=== PATIENT | female | born 1965 ===

== ENCOUNTER 2018-08-06 07:30 | Inpatient (IN) | payer OTHER ==
[~2018-08-06] VITALS: Ht 157.5 cm; Wt 73.9 kg
[2018-08-20] VITALS (15 sets, daily range): BP systolic 100–131; BP diastolic 57–84
[2018-08-20] MEDS ORDERED: TYLENOL EXTRA500 MG ORAL (06:10)
[2018-08-20] MEDS ORDERED: Ropivacaine 5mg/ml Vial 30ml INJ ONE (06:42)
[2018-08-20] MEDS ORDERED: Gelfoam Size TOPIC ONE (06:42)
[2018-08-20] MEDS ORDERED: Thrombin 5000 units TOPIC ONE (06:42)
[2018-08-20] MEDS ORDERED: Vancomycin 1gm vial IVPB ONE (06:42)
[2018-08-20] MEDS ORDERED: Bacitracin 50000 Units Vial ONE (06:43)
[2018-08-20] MEDS ORDERED: fentaNYL 100 mcg/2 mL IV ONE (06:44)
[2018-08-20] MEDS ORDERED: Ketorolac 30mg Inj ONE (06:44)
[2018-08-20] MEDS ORDERED: Midazolam 2mg/2ml Inj ONE (06:44)
[2018-08-20] MEDS ORDERED: Lidocaine 1% MPF 10mg/ml 5ml ONE (06:44)
[2018-08-20] MEDS ORDERED: Zemuron 50mg/5ml Inj IV ONE (06:57)
[2018-08-20] MEDS ORDERED: Succinylcholine 20mg/ml 10ml vial ONE (06:57)
[2018-08-20] MEDS ORDERED: Propofol 1,000mg/ 100ml btl IV ONE (07:00)
[2018-08-20] MEDS ORDERED: ceFAZolin sod 2 GM in NS 55 ML IVPB ONE (07:00)
--- NOTE | 2018-08-20 07:14 | Pre-Procedure Note/Attestation ---
Pre-Procedure Note/Attestation Complete Prior to Procedure Planned Procedure: left Procedure Narrative: Left sided L5S1 hemilaminotomy foraminotomy microdiscectomy Indications for Procedure Pre-Operative Diagnosis: L5S1 Herniation Attestation I attest that I discussed the nature of the procedure; its benefits; risks and complications; and alternatives (and the risks and benefits of such alternatives ), prior to the procedure, with the patient (or the patient's legal renewals representative). I attest that, if there was a reasonable possibility of needing a blood transfusion, the patient (or the patient's legal renewals representative) was given the [facility] standardized written summary, pursuant to the Harrison Jimbo Blood Safety Act ([place] Health and Safety Code # 1645, as amended). I attest that I re-evaluated the patient just prior to the surgery and that there has been no change in the patient's H&P, except as documented below: Pedro Griffith MD Aug 20, 2018 07:14
[2018-08-20] MEDS ORDERED: Naloxone 0.4mg/ml Inj IVP PRN (07:15)
[2018-08-20] MEDS ORDERED: Chloraseptic Spray 20mL Bottle ORAL PRN (07:15)
[2018-08-20] MEDS ORDERED: Milk of Magnesia 30ml Ud ORAL PRN (07:15)
[2018-08-20] MEDS ORDERED: Morphine Sulfate 2mg/ml Inj(IV/IM USE ONLY) IV PRN (07:15)
[2018-08-20] MEDS ORDERED: HYDROmorphone 1mg/ml Carpuject IVP PRN (07:15)
[2018-08-20] MEDS ORDERED: Morphine Sulfate 4mg/ml Inj (IV USE ONLY) IV PRN ×2 (07:15)
[2018-08-20] MEDS ORDERED: Metoclopramide 10mg/2ml Inj IVP PRN ×2 (07:15→08:15)
[2018-08-20] MEDS ORDERED: HYDROcodone/Acetamin 7.5/325 tab ORAL PRN ×2 (07:15)
[2018-08-20] MEDS ORDERED: HYDROcodone/Acetamin 5/325 tab ORAL PRN (07:15)
--- NOTE | 2018-08-20 07:15 | Brief Operative Note ---
Immediate Post Operative Note Operative Note Chief Complaint: left sided radiculopathy and back pain Pre-op Diagnosis: L5S1 Herniation Procedure: Left sided L5S1 hemilaminotomy foraminotomy microdiscectomy Post-op Diagnosis: same as pre-op Findings: consistent w/pre-op dx studies Surgeon: Nacho Internal Medicine Veterinary Technician: Steve Anesthesiologist: ISA Anesthesia: general Specimen: none Complications: none Condition: stable Fluids: ivf Estimated Blood Loss: minimal Drains: none Implant(s) used?: No Pedro Griffith MD Aug 20, 2018 07:14
[2018-08-20] MEDS ORDERED: Sterile Water Irrig 1000ml IRRIG ONE (07:44)
[2018-08-20] MEDS ORDERED: NS Irrig 1000ml ONE (07:44)
[2018-08-20] MEDS ORDERED: LR 1000ml ONE (07:44)
[2018-08-20] MEDS ORDERED: Propofol 200mg/20ml IV ONE (07:44)
[2018-08-20] MEDS ORDERED: Morphine Sulfate 10mg/ml Inj ONE (08:02)
[2018-08-20] MEDS ORDERED: Glycopyrrolate 0.2mg/ml 1ml Vial ONE (08:03)
[2018-08-20] MEDS ORDERED: Sodium Chloride 10ml vial INJ ONE (08:03)
[2018-08-20] MEDS ORDERED: Neostigmine 1mg/ml 10ml Inj ONE (08:03)
--- NOTE | 2018-08-20 08:11 | Anethesia Preoperative Eval ---
Anesthesia Pre-op PMH/ROS General Date of Evaluation: Aug 20, 2018 Time of Evaluation: 06:45 Anesthesiologist: Axel ASA Score: ASA 2 Mallampati Score Class I : Soft palate, uvula, fauces, pillars visible Class II: Soft palate, uvula, fauces visible Class III: Soft palate, base of uvula visible Class IV: Only hard plate visible Mallampati Classification: Class II Surgeon: Nacho Diagnosis: Lumbar radiculopathy Surgical Procedure: L5-S1 laminotomy Anesthesia History: none Family History: no anesthesia problems Allergies: Coded Allergies: PENICILLINS (Verified Allergy, Intermediate, 08/20/18) skin rash,vomiting Medications: see eMAR Patient NPO?: Yes NPO Date: Aug 19, 2018 NPO Time: 2129 Past Medical History Cardiovascular: Denies: HTN, CAD, [place], valve dz, arrhythmia, other Pulmonary: Denies: asthma, COPD, RAGHU, other Gastrointestinal/Genitourinary: Reports: GERD - mild; Denies: CRI, ESRD, other Neurologic/Psychiatric: Denies: dementia, CVA, depression/anxiety, TIA, other Endocrine: Denies: DM, hypothyroidism, steroids, other HEENT: Denies: cataract (L), cataract (R), glaucoma, PECHANGA (L), PECHANGA (R), other Hematology/Immune: Denies: anemia, DVT, bleeding disorder, other Musculoskeletal/Integumentary: Denies: OA, RA, DJD, DDD, edema, other Other: other - overweight PMH Narrative: as above PSxH Narrative: Appendectomy Anesthesia Pre-op Phys. Exam Physician Exam Last Vital Signs Date Time Temp Pulse Resp B/P (MAP) Pulse Ox O2 Delivery O2 Flow Rate FiO2 08/20/18 06:46 97.6 68 20 122/84 (97) 99 08/20/18 05:53 Room Air Constitutional: NAD Neurologic: CN 2-12 intact Cardiovascular: RRR, no M/R/G Respiratory: CTA Gastrointestinal: S/NT/ND Airway Exam Mallampati Score: Class II MO: full Neck: flexible ROM: full Teeth: intact Dentures: no upper, no lower Anesthesia Pre-op A/P Labs see chart Studies Pre-op Studies: EKG - NSR Risk Assessment & Plan Assessment: ASA 2 Plan: GA with ETT prone position neuromonitoring Status Change Before Surgery: No Pre-Antibiotics Drug: Ancef 1gr. Given Within 1 Hr of Incision: Yes Time Given: 07:56 Almas Reyna MD Aug 20, 2018 08:11
[2018-08-20] MEDS ORDERED: LR 1000ml 1,000 ML IVLG SCH (08:12)
[2018-08-20] MEDS ORDERED: Meperidine 50mg/ml Inj(FOR RIGORS ONLY) IV PRN (08:15)
[2018-08-20] MEDS ORDERED: DiphenhydrAMINE 50mg/ml Inj IVP PRN (08:15)
[2018-08-20] MEDS ORDERED: Ketorolac 30mg Inj IV PRN (08:15)
[2018-08-20] MEDS ORDERED: Hydromorphone 0.5mg/0.5ml inj IVP PRN (08:15)
[2018-08-20] MEDS: Docusate 100mg cap ORAL SCH ×2 (09:00→17:49)
--- NOTE | 2018-08-20 09:08 | Immediate Post-Op Evaluation ---
Immediate Post-Op Evalulation Immediate Post-Op Evalulation Procedure: L5-S1 laminotomy with discectomy and decompression Date of Evaluation: Aug 20, 2018 Time of Evaluation: 09:07 IV Fluids: 700 Blood Products: none Estimated Blood Loss: min Urinary Output: 100 Blood Pressure Systolic: 104 Blood Pressure Diastolic: 56 Pulse Rate: 78 Respiratory Rate: 20 O2 Sat by Pulse Oximetry: 98 Temperature (Fahrenheit): 97.6 Pain Score (1-10): 1 Nausea: No Vomiting: No Complications none Patient Status: reacts, patent, extubated, none Hydration Status: adequate Almas Reyna MD Aug 20, 2018 09:08
[2018-08-20] MEDS ORDERED: Acetaminophen (Non formulary) 100 ML IV ONE (09:15)
--- NOTE | 2018-08-20 10:20 | NUR ---
NURSE NOTES: PATIENT RECEIVED FROM PACU ON BED WITH FAMILY AT SIDE. BEDSIDE REPORT GIVEN. SURGICAL SITE ASSESSED UPON LOG ROLLING PATIENT; TOLERATED WELL. DRSG C/D/I. PROPER BODY ALIGNMENT MAINTAINED. PT. DENIES PAIN. CMS WNL. SCDS ON. BED IN LOWEST AND LOCKED POSITION. PT AND FAMILY ORIENTED TO ROOM. CALL LIGHT WITHIN REACH.
--- NOTE | 2018-08-20 12:04 | Diagnostic Imaging Report ---
INDICATION: Pain, intraoperative TECHNIQUE: Intraoperative imaging Fluoroscopy time: 6.6 seconds Total dose: 0.77853 mGym2 Total number of images: 2 COMPARISON: None FINDINGS: Intraoperative images demonstrate surgical tools projected posterior to and then superimposed over what is presumably the L5-S1 disc. IMPRESSION: Intraoperative imaging, as described
[2018-08-20] MEDS: NS w/KCl 20mEq 1000ml 1,000 ML IV SCH ×2 (12:34→21:04)
[2018-08-20] MEDS: Dexamethasone 4mg/ml vial IVP SCH ×3 (12:34→23:52)
--- NOTE | 2018-08-20 17:41 | NUR ---
CASE MANAGEMENT: INITIAL REVIEW 53 YO F PRESENTED TO HOSPITAL FOR SURGERY PMHx: BACK PAIN. HLD. OA. SI:HERNIATED NUCLEUS PULPOSUS. RADICULOPATHY. T 97.6 HR 68 RR 20 B/P 122/84 SATS 99% ON RA NO LABS TODAY IS: OR MEDS PATIENT ADMITTED TO MED/SURG 08/20/2018 @ 0715 DCP: PATIENT TO BE DISCHARGED TO HOME ONCE MEDICALLY CLEARED. PLAN OF CARE: Operative Note Chief Complaint: left sided radiculopathy and back pain Pre-op Diagnosis: L5S1 Herniation Procedure: Left sided L5S1 hemilaminotomy foraminotomy microdiscectomy Addendum: 08/22/18 at 1024 by Nakia Fernández CM INTERQUAL MET
--- NOTE | 2018-08-20 17:57 | NUR ---
NURSE NOTES: PATIENT REMAINS STABLE. AOX4.TOLERATING CLEAR LIQUIDS. NO N/V PRESENT. FAMILY AT BEDSIDE. VSS.AFEBRILE. USING I./S INSTRUCTED.
--- NOTE | 2018-08-20 19:24 | NUR ---
HAND-OFF: Report given to WILLY MASON RN.
--- NOTE | 2018-08-20 19:45 | Operative Note - Dictated ---
DATE OF OPERATION: 08/20/2018 SURGEON: Pedro Griffith MD FLOOR COVERER SURGEON: Wing Wilson M.D. ANESTHESIA: General endotracheal anesthesia. PREOPERATIVE DIAGNOSES: 1. Intractable back pain. 2. Intractable leg pain. 3. Worsening radiculopathy. 4. Weakness. 5. Herniated nucleus pulposus, L5-S1 herniation. 6. Neural foraminal stenosis, L5-S1. POSTOPERATIVE DIAGNOSES: 1. Intractable back pain. 2. Intractable leg pain. 3. Worsening radiculopathy. 4. Weakness. 5. Herniated nucleus pulposus, L5-S1 herniation. 6. Neural foraminal stenosis, L5-S1. PROCEDURES PERFORMED: 1. Left-sided L5-S1 microdiscectomy. 2. L5-S1 hemilaminotomy, foraminotomy and medial facetectomy. 3. L5-S1 neural foraminotomy 4. Use of intraoperative microscope. 5. Supervision and interpretation of intraoperative fluoroscopy. 6. Supervision and interpretation of somatosensory-evoked potential and free running EMG monitoring. EBL: Less than 100 mL. COMPLICATIONS: None. INDICATIONS FOR THE PROCEDURE: The patient presents for intractable back pain and radiculopathy. The patient tried and failed a prolonged course of conservative management, including but not limited to chiropractic therapy, physical therapy, nonsteroidal anti-inflammatory drugs, medication, ice packs as well as epidural injection. Despite these therapies, the patient still developed recalcitrant pain and elected for definitive management in the form of left-sided L5-S1 microdiscectomy, L5-S1 hemilaminotomy, foraminotomy and medial facetectomy, L5-S1 neural foraminotomy through a transpedicular intraforaminal approach CONSENT: We had a long discussion with the patient regarding definitive surgical treatment options. The patient's MRI demonstrated herniated nucleus pulposus, L5-S1 herniation, neural foraminal stenosis, L5-S1 and as a result, I felt the patient would benefit from the discectomy as well as neural foraminotomy at this level. We had a long discussion with the patient regarding the risks, alternatives, and benefits of surgery. Our description of the risks included a discussion in person as well as a signed consent which detailed all pertinent risks and the procedure itself. Briefly, our discussion included but was not limited to infection, bleeding, pseudarthrosis, spinal cord injury, neurovascular injury, dural tear, CSF leak, neuropathy, paralysis, permanent weakness/drop foot, paresthesias blindness, palsy and weakness. The patient understood there may be a need for revision surgery or additional procedures. Approach related complications including dysphonia, dysphagia, blindness, permanent vocal cord and neural injury, hematoma, swallowing and breathing difficulty. Medical complications including liver, kidney, shock, and cardiopulmonary failure. Anesthesia complications including , swelling. Damage to the musculature, larynx (voice injury or loss),esophagus (throat), trachea, blood vessels and muscles (muscular sprain) and lungs (pneumothorax) during this surgical procedure. Injury to deeper structures may be temporary or permanent. The patient understood these and elected to proceed. A written and verbal consent was given. We discussed the pros and cons of all the alternatives. We discussed the uncertainties associated with the decision. Afterwards I assessed the patients understanding and explored their preferences. All questions were answered and no guarantees were given. Medical clearance was obtained prior to surgery INTRAOPERATIVE FINDINGS: At L5-S1, there was an obvious tear noted in the posterior longitudinal ligament. This tear was approximately 20 degrees from cephalad to caudad. In this tear, there was an egress of nuclear tissue from the nucleus pulposus causing pressure encroaching and decreasing the area in the neural foramina at L5-S1 interspace and the longest traversing nerves. The disk itself was soft. It was not calcified. It was large. The herniated nuclear fragment was easy to remove from the confines of the disk itself and once removed, there was an appearance decrease in the amount of nuclear tissue remaining in the interspace, which almost appeared to be empty signifying a significant herniation had occurred. DESCRIPTION OF PROCEDURE: Under the benefit of general endotracheal anesthesia and with the assistance of the entire operative team, the patient was moved from the [facility] onto the operative table in the prone position on a Manuel frame. The head was secured and positioned appropriately. Bilateral arms were secured with Gel pads and foam and all bony prominences were padded. The bilateral lower extremity SCD and EVA hose were placed for DVT prophylaxis. A surgical timeout was called which corroborated our planned procedure. Preoperative Antibiotics were administered within 30 minutes of the incision for prophylaxis. Decadron was given for preoperative steroids. Using lateral radiography, the operative levels were delineated. An incision was marked based on our interpretation of lateral radiography and afterwards the body was prepped and draped in the usual sterile manner. The family was notified that we were ready to commence surgery and were called in the waiting room hourly for updates An incision was based on our lateral fluoroscopic image to center the incision at the L5-S1 interspace. The wound was prepped and draped in the usual sterile fashion. Using a scalpel a midline incision was taken down through the skin and subcutaneous tissues until the overlying hemilamina of L5-S1 were visualized. Next, using meticulous hemostasis, hemilamotomies were dissected and retractors were placed. Using a EyeEm dental, we confirmed placement at the L5-S1 interspace. We next turned our attention to our decompression. A standard hemilaminotomy foraminotomy medial facetectomy was performed at each level in standard fashion using a Midas-Kar type AM8 drill bit, straight and angled curettage, and Kerrison 4 rongeurs until the lateral thecal sac margin and traversing nerve root was visualized. All remainders of the ligamentum flavum and lateral bony margins were resected in total with angled curettage and Kerrison 4 rongeurs until the lateral thecal sac margin and traversing nerve root was visualized and decompressed. We next turned our attention toward our L5-S1 microdiscectomy on the left side. A [place] 4 was used to gently mobilize the thecal sac medially and this was held retracted with a bayonetted nerve root retractor. It was at this point that we noted a large broad-based disc protrusion with encroachment dorsally on the thecal sac neural foraminal contents. A bayonet and nerve root retractor was then placed carefully to retract the thecal sac and a discectomy was performed using a combination of a long handled 15 blade scalpel, downgoing and straight pituitaries and downgoing curettage. At L5-S1, there was an obvious tear noted in the posterior longitudinal ligament. This tear was approximately 20 degrees from cephalad to caudad. In this tear, there was an egress of nuclear tissue from the nucleus pulposus causing pressure encroaching and decreasing the area in the neural foramina at L5-S1 interspace and the longest traversing nerves. The disk itself was soft. It was not calcified. It was large. The herniated nuclear fragment was easy to remove from the confines of the disk itself and once removed, there was an appearance decrease in the amount of nuclear tissue remaining in the interspace, which almost appeared to be empty signifying a significant herniation had occurred.Afterward the disc space was irrigated twice with 20 mL of antibiotic-impregnated saline. All loose and free-floating disc fragments were carefully resected with a narrow pituitary. Having been satisfied with our decompression after our discectomy of all neural elements, we next turned our attention to our neural foraminoplasty/foraminotomy. This was performed with kerrisons and pituitaries which allowed for re-creation of the neural foraminal arch at L5-S1. Afterwards, hemostasis was obtained with 60 mL of antibiotic-impregnated saline followed by FloSeal and Gelfoam. After sponge and needle count were found to be correct, we next turned our attention to closure. Closure consisted of 1-0 Vicryl in standard interrupted fashion. Zosyn was placed deep to the fascia and superficial to the fascia for antibiotic prophylaxis. Skin closure was performed with 2-0 Vicryl in interrupted fashion followed by a running Monocryl for the skin. Final dressings consisted of Dermabond for the superficial skin, Telfa and Tegaderm. The patient tolerated the procedure well. The patient was extubated after the conclusion of surgery without incident. We discussed the findings of the surgery with the family upon completion of the case. At this point the patient will be transferred to the spine floor for further observation. Pedro Griffith M.D. DR: GRICELDA JOB#: [id number] CC: ROSELINE
--- NOTE | 2018-08-20 19:54 | NUR ---
NURSE NOTES: Patient in bed awake and oriented. VSS. No SOB noted. No Pain. No N&V. Dressing is clean and dry. IV site intact and able to tolerate IV fluids well. Dr. Cheek made aware of patients admission in 3E. Awaiting for call back. Needs attended. Call light within reach. Bed is locked and in low position. In stable condition.
[2018-08-20] MEDS: Vancomycin 1 GM in D5W 275 ML IVPB SCH (21:04)
--- NOTE | 2018-08-20 23:53 | Internal Med Progress Note ---
Subjective Physician Name HamChris Attending Physician Pedro Griffith MD Current Medications Medications (Trade) Dose Ordered Sig/Alva Route PRN Reason Start Time Stop Time Status Last Admin Dose Admin Acetaminophen (Tylenol) 650 mg Q4H PRN ORAL headache or temp>101 08/20/18 07:15 09/19/18 07:14 Acetaminophen/ Hydrocodone Bitart ([place] 5/325) 1 tab Q3H PRN ORAL pain score 1-3 08/20/18 07:15 08/27/18 07:14 Acetaminophen/ Hydrocodone Bitart ([place] 7.5/325) 1 tab Q3H PRN ORAL pain score 4-6 08/20/18 07:15 08/27/18 07:14 Acetaminophen/ Hydrocodone Bitart ([place] 7.5/325) 2 tab Q3H PRN ORAL pain scale 7-10 08/20/18 07:15 08/27/18 07:14 Carisoprodol (Soma) 350 mg TIDPRN PRN ORAL SPASM 08/20/18 07:15 09/19/18 07:14 Cetylpyridinium Chloride (Cepacol) 1 lozg Q2H PRN DASHAWN To Patient Comfort 08/20/18 07:15 09/19/18 07:14 Dexamethasone Sodium Phosphate (Decadron 4mg/ml vial) 4 mg Q6HR IVP 08/20/18 12:00 08/21/18 06:01 08/20/18 17:49 Docusate Sodium (Colace) 100 mg TWICE A DAY ORAL 08/20/18 09:00 09/19/18 08:59 08/20/18 17:49 Hydromorphone HCl (Dilaudid) 1 mg Q2H PRN IVP Breakthrough Pain 08/20/18 07:15 08/27/18 07:14 Magnesium Hydroxide (Mom) 30 ml QIDPRN PRN ORAL Constipation 08/20/18 07:15 09/19/18 07:14 Metoclopramide HCl (Reglan) 10 mg Q6H PRN IVP Nausea & Vomiting 08/20/18 07:15 09/19/18 07:14 Morphine Sulfate (Morphine Sulfate) 2 mg Q4H PRN IV Mild Pain (Pain Scale 1-3) 08/20/18 07:15 08/27/18 07:14 Morphine Sulfate (Morphine Sulfate) 4 mg Q3H PRN IV Severe Pain (Pain Scale 7-10) 08/20/18 07:15 08/27/18 07:14 08/20/18 12:37 Morphine Sulfate (Morphine Sulfate) 4 mg Q4H PRN IV Moderate Pain (Pain Scale 4-6) 08/20/18 07:15 08/27/18 07:14 Naloxone HCl (Narcan) 0.1 mg PRN PRN IVP RR<12/min, pt unarousable 08/20/18 07:15 09/19/18 07:14 Ondansetron HCl (Zofran) 4 mg Q6H PRN IVP Nausea & Vomiting 08/20/18 07:15 09/19/18 07:14 Phenol/Menthol (Chloraseptic) 1 spray Q3H PRN ORAL To Patient Comfort 08/20/18 07:15 09/19/18 07:14 Potassium Chloride/Sodium Chloride 1,000 ml @ 100 mls/hr Q10H IV 08/20/18 11:30 09/19/18 11:29 08/20/18 21:04 Prochlorperazine (Compazine) 10 mg Q6H PRN IVP Nausea & Vomiting 08/20/18 07:15 09/19/18 07:14 Temazepam (Restoril) 15 mg HSPRN PRN ORAL Insomnia 08/20/18 07:15 08/27/18 07:14 Vancomycin HCl 1 gm/Dextrose 275 ml @ 183.3 mls/ hr EVERY 12 HOURS IVPB 08/20/18 21:00 08/21/18 10:31 08/20/18 21:04 Allergies: Coded Allergies: PENICILLINS (Verified Allergy, Intermediate, 08/20/18) skin rash,vomiting Subjective awake, alert, responsive, NAD Objective Last Vital Signs Date Time Temp Pulse Resp B/P (MAP) Pulse Ox O2 Delivery O2 Flow Rate FiO2 08/20/18 21:00 Nasal Cannula 3.0 08/20/18 20:00 97.7 91 18 112/74 (87) 97 Objective Physical Exam General: No acute distress, awake and alert HEENT: NCAT, sclera anicteric, PERRL, EOMI. Neck: Supple, no significant jugular venous distention, Lungs: Good inspiratory effort, clear to auscultation bilaterally, no Wheeze or Rales. Heart: Regular rate and rhythm, normal S1/S2, no murmur. Abdomen: soft, nontender, nondistended. Normoactive bowel sounds. Back: Lumbar dressing intact, / Rectal: Refused and deferred. Extremities: No Cyanosis , clubbing or edema. Neuro: A&O x 3, Able to move all extremities Skin: warm, no rashes or lesions Psych: Normal mood and affect Assessment/Plan Assessment/Plan Left sided radiculopathy and back pain L5S1 Herniation s/p Left sided L5S1 hemilaminotomy foraminotomy microdiscectomy Plan: PT Mobility Pain Medication DC planning for AM. Chris Cheek MD Aug 20, 2018 23:53
[2018-08-21] VITALS: BP 96/59
[2018-08-21 04:00] VITALS: BP 101/63
[2018-08-21] MEDS: Dexamethasone 4mg/ml vial IVP SCH (05:56)
[2018-08-21] MEDS: NS w/KCl 20mEq 1000ml 1,000 ML IV SCH (06:11)
--- NOTE | 2018-08-21 08:20 | 48 Hour Post Anesthesia Eval ---
Post Anesthesia Evaluation Procedure: L5-S1 laminotomy with discectomy and decompression Date of Evaluation: Aug 21, 2018 Blood Pressure Systolic: 101 0: 63 Pulse Rate: 76 Respiratory Rate: 20 Temperature (Fahrenheit): 97.4 O2 Sat by Pulse Oximetry: 95 Airway: patent Nausea: No Vomiting: No Pain Intensity: 0 Hydration Status: adequate Cardiopulmonary Status: at baseline Mental Status/LOC: patient returned to baseline Post-Anesthesia Complications: 0 Follow-up care needed: N/A - further care as per primary team Lizeth Triplett MD Aug 21, 2018 08:20
[2018-08-21 08:22] VITALS: BP 117/65
--- NOTE | 2018-08-21 08:45 | Discharge Summary ---
DATE OF ADMISSION: 08/20/2018 DATE OF DISCHARGE: 08/21/2018 REASON FOR ADMISSION: Herniated nucleus pulposus, L5-S1. PROCEDURE PERFORMED DURING ADMISSION: Microdiskectomy, L5-S1. HOSPITAL COURSE/TREATMENT RENDERED: DISCHARGE PHYSICAL EXAM: 1. Patient was ambulating with and without the assistance of physical therapy. 2. Prior to discharge home incision was clean and dry with minimal swelling. 3. Follows commands. 4. Alert and oriented. 5. Beaver discontinued, voiding. 6. Incentive spirometer at bedside. 7. IVF hep locked. MOTOR: Demonstrates expected postoperative bulk and tone. Moves biceps, triceps, and deltoid musculature on command. Moves hip flexors, quadriceps, tibialis anterior, EHL, gastrocsoleus musculature on command as well. TREATMENT RENDERED: 1. Daily nursing care. 2. Physical Therapy. 3. Occupational Therapy. 4. Intravenous medications. 5. Oral medications. 6. Daily postoperative examinations by Spine surgery team. CONDITION OF PATIENT ON DISCHARGE: The condition on discharge is stable for discharge to home. DISCHARGE INSTRUCTIONS: Our specific instructions relating to physical activity, medications diet and follow-up care are detailed in our standard operative folder and were given to this patient prior to surgery. We will however summarize these briefly as stated below. Regarding physical activity we would like the patient to limit their flexion, extension and rotation. We also require a limitation on their bending lifting and twisting. All medication has been called in prior to surgery to their pharmacy of choice. They can resume their regular diet once tolerated. We would like them to shower and limit soaking the wound in a tub/Jacuzzi/the ocean for a period of one month or until the incision is completely healed. We will have them follow up in our office in three weeks time for their regularly scheduled appointment. They understand to call our office tomorrow to schedule the time for their three week followup appointment. The patient will notify us should they experience any increase in the severity of pain, redness/swelling/ or drainage from their incision. Pedro Griffith M.D. DR: GRICELDA JOB#: [id number] CC:
[2018-08-21] MEDS: Docusate 100mg cap ORAL SCH (09:33)
[2018-08-21] MEDS: Vancomycin 1 GM in D5W 275 ML IVPB SCH (09:34)
[2018-08-21 12:51] VITALS: BP 121/75
--- NOTE | 2018-08-21 13:08 | NUR ---
NURSE NOTES: during shift change patient alert oriented with out no distress call light within reach bed on low position locked, surgical site dressing dry and intact no redness or s/s of infection noted, no neuro deficit on nursing assessment. pt. education reinforced s/s to report and pt. informed of DS order and pending PT aval and dose of antibiotics . will continue to monitor.
[2018-08-21] MEDS ORDERED: NORCO 10-325 T1 EACH ORAL ×2 (13:56→13:57)
--- NOTE | 2018-08-21 14:28 | NUR ---
NURSE NOTES: Patient discharged from the unit stable condition, discharge instruction, belongings and prescription given to patient, discharge education provided both for patient and family, verbalized understanding. patient also verbalized received a call from Dr. Griffith office for follow up appointment on 09/04. transported from the unit to personal vehicle safely accompanied by staff member and family. Prescription given to patient unable to refill the medication in [facility] due to insurance pt. stated she will get medication from her own pharmacy prescription given.
--- NOTE | 2018-08-21 14:43 | NUR ---
PT Note PT jake completed, tx initiated. Patient needs physical therapy to instruct on proper body mechanics and proper log rolling techniques and stair training. Addendum: 08/21/18 at 1444 by ROCHELLE FORD PT Amended: Links added.
--- NOTE | 2018-08-21 16:34 | Internal Med Progress Note ---
Subjective Physician Name Chris Cheek Attending Physician Pedro Griffith MD Allergies: Coded Allergies: PENICILLINS (Verified Allergy, Intermediate, 08/20/18) skin rash,vomiting Subjective awake, alert, responsive, NAD Objective Last Vital Signs Date Time Temp Pulse Resp B/P (MAP) Pulse Ox O2 Delivery O2 Flow Rate FiO2 08/21/18 13:55 98.2 08/21/18 12:51 76 20 121/75 (90) 99 08/21/18 09:00 Room Air 08/20/18 21:00 3.0 Intake and Output 08/20/18 08/21/18 19:00 07:00 Intake Total 1650 ml 1000 ml Output Total 820 ml Balance 830 ml 1000 ml IV Total 1650 ml 1000 ml Output Urine Total 800 ml Estimated Blood Loss 20 ml Objective Physical Exam General: No acute distress, awake and alert HEENT: NCAT, sclera anicteric, PERRL, EOMI. Neck: Supple, no significant jugular venous distention, Lungs: Good inspiratory effort, clear to auscultation bilaterally, no Wheeze or Rales. Heart: Regular rate and rhythm, normal S1/S2, no murmur. Abdomen: soft, nontender, nondistended. Normoactive bowel sounds. Back: Lumbar dressing intact, / Rectal: Refused and deferred. Extremities: No Cyanosis , clubbing or edema. Neuro: A&O x 3, Able to move all extremities Skin: warm, no rashes or lesions Psych: Normal mood and affect Assessment/Plan Assessment/Plan Left sided radiculopathy and back pain Herniated nucleus pulposus, L5-S1 s/p Microdiskectomy, L5-S1. Plan: PT Mobility Pain Medication DC planning today. Chris Cheek MD Aug 21, 2018 16:34
== END 2018-08-21 14:20 | disposition home or self-care (01) | DRG 520 ==
LOC: SDSOVERFLO 08-20 05:13 → 3E 08-20 10:20
DX: M51.17 Intervertebral disc disorders with radiculopathy, lumbosacral region (principal); M48.07 Spinal stenosis, lumbosacral region; K29.70 Gastritis, unspecified, without bleeding; V89.2XXS Person injured in unspecified motor-vehicle accident, traffic, sequela
CPT/HCPCS: 36415; 72020; 76000; 86850; 86900; 86901; 87081; 94003; 94150; J2250; J2405; J2710